=== PATIENT | male | born 1985 | race Caucasian/White ===

== ENCOUNTER 2016-09-14 09:10 | Emergency (ER) | payer SELFPAY ==
[~2016-09-14] VITALS: Ht 167.6 cm; Wt 54.4 kg
[2016-09-14 10:06] VITALS: BP 133/72
--- NOTE | 2016-09-14 10:45 | NUR ---
PT AMBULATED TO BED 2 AT THIS TIME.
--- NOTE | 2016-09-14 10:52 | NUR ---
31M BIB SELF C/O WOUND CHECK TO LEFT GLUTEUS DRAINED AT [facility] ON 09/11/16; PT C/O ACHING PAIN W/ PHYSICAL ACTIVITY, NON-RADIATING, 5/10 AT THIS TIME; NO BLEEDING OR EXCESSIVE DRAINAGE NOTED TO SITE AT THIS TIME; PT A&OX4, BL LUNG SOUNDS CLEAR, RR EVEN/UNLABORED, SKIN IS WARM/DRY AT THIS TIME; PT DENIES N/V/D AT THIS TIME; STEADY GAIT. PT RESTING IN BED W/ HOB ELEVATED AND IN LOWEST POSITION; POSITIONED FOR COMFORT; ER MD MADE AWARE OF STATUS. WILL CONTINUE TO MONITOR.
--- NOTE | 2016-09-14 11:52 | NUR ---
ER MD DR. CARBALLO EVALUATING PT AT BEDSIDE.
[2016-09-14 12:03] VITALS: BP 118/72
--- NOTE | 2016-09-14 12:03 | NUR ---
Patient discharged with v/s stable. Written and verbal after care instructions given and explained. Patient verbalized understanding. Ambulatory with steady gait. All questions addressed prior to discharge. Advised to follow up with PMD.
== END 2016-09-14 12:03 | disposition home or self-care (01) ==
LOC: MED 09:15
DX: Z48.01 Encounter for change or removal of surgical wound dressing (principal)

== ENCOUNTER 2016-10-10 16:17 | Emergency (ER) | payer SELFPAY ==
[~2016-10-10] VITALS: Ht 167.6 cm; Wt 59.0 kg
[2016-10-10 16:37] VITALS: BP 114/74
--- NOTE | 2016-10-10 16:45 | NUR ---
PT PRESENTS TO ER FOR EVALUATION OF ABSCESS TO LEFT BUTTOCK. DENIES N/V/D; SKIN IS PINK/WARM/DRY; AAOX4 WITH EVEN AND STEADY GAIT; LUNGS CLEAR BL; HR EVEN AND REGULAR; PT DENIES ANY FEVER, CP, SOB, OR COUGH AT THIS TIME; PATIENT STATES PAIN OF 4/10 AT THIS TIME; VSS; PATIENT POSITIONED FOR COMFORT; HOB ELEVATED; BEDRAILS UP X2; BED DOWN. ER MD MADE AWARE OF PT STATUS.
--- NOTE | 2016-10-10 16:54 | NUR ---
Dr. Benítez evaluating patient at bedside.
[2016-10-10] MEDS ORDERED: LIDOCAINE 1% 500 MG/50 ML VIAL INJ ONE (17:00)
--- NOTE | 2016-10-10 17:04 | NUR ---
Dr. Benítez at bedside for incision and drainage of abscess.
[2016-10-10 17:28] VITALS: BP 121/88
--- NOTE | 2016-10-10 17:28 | NUR ---
Patient discharged with v/s stable. Written and verbal after care instructions given and explained. Patient alert, oriented and verbalized understanding of instructions. Ambulatory with steady gait. All questions addressed prior to discharge. ID band removed. Patient advised to follow up with PMD. Rx of MOTRIN, BACTRIM given. Patient educated on indication of medication including possible reaction and side effects. Opportunity to ask questions provided and answered.
== END 2016-10-10 17:28 | disposition home or self-care (01) ==
LOC: MED 16:17
DX: L02.31 Cutaneous abscess of buttock (principal); L03.315 Cellulitis of perineum
CPT/HCPCS: 10060; 99283; J2001

== ENCOUNTER 2016-10-13 07:30 | Emergency (ER) | payer SELFPAY ==
[~2016-10-13] VITALS: Ht 167.6 cm; Wt 59.0 kg
[2016-10-13 07:34] VITALS: BP 111/70
--- NOTE | 2016-10-13 07:41 | NUR ---
PATIENT PRESENTS TO ED WITH C/O WOUND CHECK, HAD I AND D LAST Wednesday10/10/16 ON LEFT BUTTOCKS; NO MEDICAL HISTORY . DENIES N/V/D; SKIN IS PINK/WARM/DRY; AAOX4 WITH EVEN AND STEADY GAIT; LUNGS CLEAR BL; HR EVEN AND REGULAR; PT DENIES ANY FEVER, CP, SOB, OR COUGH AT THIS TIME; PATIENT STATES PAIN OF 0/10 AT THIS TIME; VSS; PATIENT POSITIONED FOR COMFORT; HOB ELEVATED; BEDRAILS UP X2; BED DOWN. ER MD MADE AWARE OF PT STATUS.
--- NOTE | 2016-10-13 07:41 | NUR ---
DR ARREGUIN ASSESSING THE PT AT BEDSIDE
--- NOTE | 2016-10-13 07:50 | NUR ---
NON STICK STERILE DRESSING APPLIED ON LEFT BUTTOCK TO AAO PT, TOLERATED WELL, VSS, WILL CONTINUE TO MONITOR
[2016-10-13 08:02] VITALS: BP 119/79
== END 2016-10-13 08:02 | disposition home or self-care (01) ==
LOC: MED 07:30
DX: L02.31 Cutaneous abscess of buttock (principal)
CPT/HCPCS: 99283

== ENCOUNTER 2016-10-29 09:48 | Emergency (ER) | payer MEDICAID ==
[~2016-10-29] VITALS: Ht 167.6 cm; Wt 59.0 kg
[2016-10-29 10:00] VITALS: BP 123/80
--- NOTE | 2016-10-29 10:03 | NUR ---
bed 7
--- NOTE | 2016-10-29 10:03 | NUR ---
Patient ambulated to bed 08.
--- NOTE | 2016-10-29 10:05 | NUR ---
PATIENT PRESENTS TO ED WITH C/O ABSCESS NEXT TO ANUS X3 DAYS; DENIES N/V/D; SKIN IS PINK/WARM/DRY; AAOX4 WITH EVEN AND STEADY GAIT; LUNGS CLEAR BL; HR EVEN AND REGULAR; PT DENIES ANY FEVER, CP, SOB, OR COUGH AT THIS TIME; PATIENT STATES ABSCESS PAIN OF 6/10 AT THIS TIME; VSS; PATIENT POSITIONED FOR COMFORT; HOB ELEVATED; BEDRAILS UP X2; BED DOWN. ER MD MADE AWARE OF PT STATUS.
--- NOTE | 2016-10-29 10:35 | NUR ---
Dr. Bonds evaluating patient at bedside.
[2016-10-29] MEDS ORDERED: LIDOCAINE 1% 500 MG/50 ML VIAL INJ ONE (10:40)
[2016-10-29 11:19] VITALS: BP 133/79
--- NOTE | 2016-10-29 11:19 | NUR ---
Patient discharged with v/s stable. Written and verbal after care instructions given and explained. Patient alert, oriented and verbalized understanding of instructions. Ambulatory with steady gait. All questions addressed prior to discharge. ID band removed. Patient advised to follow up with PMD. Rx of RADHA CONNELL given. Patient educated on indication of medication including possible reaction and side effects. Opportunity to ask questions provided and answered.
== END 2016-10-29 11:19 | disposition home or self-care (01) ==
LOC: MED 09:48
DX: L02.31 Cutaneous abscess of buttock (principal)
CPT/HCPCS: 10060; 99283; J2001

== ENCOUNTER 2016-10-31 08:49 | Emergency (ER) | payer MEDICAID ==
[~2016-10-31] VITALS: Ht 167.6 cm; Wt 60.6 kg
[2016-10-31 08:50] VITALS: BP 124/79
--- NOTE | 2016-10-31 09:07 | NUR ---
Luci mendoza in [facility] - 10/31/16 at 0908 by [email or web address] PATIENT AMBULATED TO ER BED 5.
--- NOTE | 2016-10-31 09:45 | NUR ---
PT AMBULATED TO ER BED 7.
--- NOTE | 2016-10-31 09:46 | NUR ---
Patient being evaluated by physician at bedside.
--- NOTE | 2016-10-31 09:48 | NUR ---
CARMEN IS A 31 YO MALE BIB SELF FOR WOUND CARE OF ABSCESS ON RIGHT BUTTOCK. WOUND HAD PACKING REMOVED CLEANED AND REDRESSED.
[2016-10-31 09:59] VITALS: BP 121/72
== END 2016-10-31 09:59 | disposition home or self-care (01) ==
LOC: MED 08:49
DX: Z48.01 Encounter for change or removal of surgical wound dressing (principal)

== ENCOUNTER 2017-01-29 00:35 | Emergency (ER) | payer SELFPAY ==
[~2017-01-29] VITALS: Ht 167.6 cm; Wt 62.4 kg
[2017-01-29 00:46] VITALS: BP 131/87
--- NOTE | 2017-01-29 05:07 | NUR ---
PT TAKEN TO BED 8
--- NOTE | 2017-01-29 05:11 | NUR ---
32 Y/O M W/C/O ALLERGIC REACTION TO HIV MEDS. PT STATES IS THE FIRST TIME TAKING THESE MEDS BUT DOESNT KNOW WHICH MED CAUSED THE REACTION D/T TOOK ALL OF THEM AT THE SAME TIME. DENIES ANY SOB, O2 SAT 99 RA, LUNGS CLEAR BILATERAL. RASH NOTED TO NECK,VSS. CHARGE NURSE NOTIFIED. MED HX HIV.
--- NOTE | 2017-01-29 05:33 | NUR ---
Dr. Valencia evaluating patient at bedside.
[2017-01-29] MEDS ORDERED: FAMOTIDINE 20 MG TAB PO ONE (05:40)
[2017-01-29 06:34] VITALS: BP 127/84
== END 2017-01-29 06:33 | disposition home or self-care (01) ==
LOC: MED 00:35
DX: R21 Rash and other nonspecific skin eruption (principal); R20.2 Paresthesia of skin; T50.995A Adverse effect of other drugs, medicaments and biological substances, initial encounter; Z88.8 Allergy status to other drugs, medicaments and biological substances; Y92.89 Other specified places as the place of occurrence of the external cause
CPT/HCPCS: 99283; Q0163

== ENCOUNTER 2019-12-15 16:38 | Emergency (ER) | payer MEDICAID ==
[~2019-12-15] VITALS: Ht 170.2 cm; Wt 54.4 kg
--- NOTE | 2019-12-15 16:40 | NUR ---
JAMILAH PEREZ ALS TO ER BED 06
[2019-12-15] MEDS ORDERED: HALOPERIDOL IM 5 MG/ML VIAL ONE (16:41)
[2019-12-15] MEDS ORDERED: LORazepam 2 MG/ML VIAL ONE (16:42)
[2019-12-15] MEDS ORDERED: HALOPERIDOL IM 5 MG/ML VIAL IM ONE (16:45)
[2019-12-15] MEDS ORDERED: LORazepam 2 MG/ML VIAL IM ONE (16:45)
[2019-12-15 16:51] VITALS: BP 118/78
--- NOTE | 2019-12-15 17:02 | NUR ---
34 YO MALE BIBA FOR ALOC D/T DRUG USE. PT ARRIVED COMBATIVE AND NAKED. PT LAYING IN BED AT THIS TIME. PT IS IN A GOWN. ONLY PMH IS HIV AND PT IS TAKING MEDS FOR HIV.
--- NOTE | 2019-12-15 17:26 | NUR ---
Dr Toledo at bedside examining pt
--- NOTE | 2019-12-15 17:55 | NUR ---
medications not given, pt able to be redirected verbally.
== END 2019-12-15 17:55 | disposition home or self-care (01) ==
LOC: MED 16:38
DX: F15.10 Other stimulant abuse, uncomplicated (principal); F17.200 Nicotine dependence, unspecified, uncomplicated
CPT/HCPCS: 99283; 99285; J1630; J2060

== ENCOUNTER 2022-10-01 15:36 | Emergency (ER) | payer MEDICAID ==
[~2022-10-01] VITALS: Ht 167.6 cm; Wt 54.4 kg
[2022-10-01 15:43] VITALS: BP 113/90
--- NOTE | 2022-10-01 15:47 | NUR ---
PT SWABBED FOR COVID AND FLU
[2022-10-01] MEDS ORDERED: CIPR7.5S OT (17:01)
[2022-10-01] MEDS ORDERED: APAP-896 PO (17:01)
[2022-10-01] MEDS ORDERED: BENZ200C4 PO (17:01)
[2022-10-01] MEDS ORDERED: AMOX500C25 PO (17:01)
== END 2022-10-01 17:08 | disposition home or self-care (01) ==
LOC: MED 15:36
DX: H60.91 Unspecified otitis externa, right ear (principal); H66.93 Otitis media, unspecified, bilateral; J06.9 Acute upper respiratory infection, unspecified; Z20.822 Contact with and (suspected) exposure to COVID-19; Z79.899 Other long term (current) drug therapy; Z79.2 Long term (current) use of antibiotics; Z88.8 Allergy status to other drugs, medicaments and biological substances
CPT/HCPCS: 99283